=== PATIENT | male | born 1965 | race Caucasian/White ===

== ENCOUNTER 2024-10-03 14:29 | Outpatient (AMB) | payer BC, SELFPAY ==
--- NOTE | 2024-10-03 14:34 | A.OFFVIS_ITS ---
Vital Signs 10/03/24 14:49 Height 5 ft 9 in Weight 175 lb BMI 25.8 BP 136/98 H Blood Pressure Location Lt brachial Position Sitting Respiration 16 Pulse 68 Pulse Source Pulse Oximeter Pulse Oximetry (%) 97 Oxygen Delivery Method Room Air Intake Visit Reasons: Cervical pain Intake Note: Patient comes in for initial visit was referred by [facility] primary care. Reports pain 5-6. Allergies No Known Allergies Allergy (Verified 10/03/24 14:36) HPI Comments Details: Insert is very pleasant 58 years old gentleman who presents in my office with complains on pain in the right side of his neck radiating into the right shoulder without further radiation down the arm. He reports that his pain started in October of 2023. He does not recall any inciting events. He reports that flexing head forward hurts more than flexing had backwards. 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 He reports that he can not sleep normally because of his pain. He can do activities of daily living. Can take care of himself. He can function normally. He reports that movements aggravate his pain. Heat application make his pain better. His pain is most severe in the morning and less severe during daytime. In terms of tissue damage he repo rts his pain is jumping, flushing, shooting, stabbing, lancinating, tingling, stinging, dull, hurting, aching, heavy sensation. He had MRI of the cervical spine results of which dictated as below. Went for 6 sessions of physical therapy and home exercise program and did not receive any pain improvement. He went for chiropractic manipulation and went for 2 alignment which was not successful. He tried home traction unit and obtain very small relief. He reports that his primary care physician performed a shoulder injection for him however this was not image guided injection. He did not receive any improvement from that injection. He takes ibuprofen 800 mg once a day and this helps his pain. His past medical history is negative. Past surgical history is secondary to left rotator cuff repair in 2018. He smokes cigarettes social drinks alcohol drinks caffeinated beverages and denies recreational drugs. [facility] Medical History (Updated 10/03/24 @ 15:26 by Marino Brunner MD) Complete tear of right rotator cuff Mixed hyperlipidemia HTN (hypertension) Surgical History (Updated 10/03/24 @ 14:46 by Lynn Villagran) H/O shoulder surgery (12/2016) Family History (Updated 10/03/24 @ 14:47 by Lynn Villagran) Paternal Grandfather Dementia Social History (Updated 10/03/24 @ 14:47 by Lynn Villagran) Comment: occasional beers Patient Tobacco Use Status: Never used Tobacco Review of Systems Const All systems reviewed & are unremarkable except as noted in HPI and below ENT Reports Normal hearing present Neuro Reports Normal hearing present, Denies Abnormal speech present, Denies confusion and Denies Sensory deficit (Neuro) Psych Denies confusion Physical Exam Vital Signs: Last Vital Signs Pulse 68 10/03/24 14:49 Resp 16 10/03/24 14:49 BP 136/98 H 10/03/24 14:49 Pulse Ox 97 10/03/24 14:49 Oxygen Delivery Method Room Air 10/03/24 14:49 BMI result Body Mass Index 25.8 Const General: no acute distress; No confusion Orientation/consciousness: patient oriented x3 and No confusion Eyes General: appearance normal, both eyes and all related structures Pupils: Equal, round and reactive pupils present EOM: EOMs intact bilaterally Neck Other: No tenderness on palpation on paraspinal spinal region of the cervical spine. No tenderness on palpation on posterior shoulder muscles. Flexing forward aggravates his pain. Axial extension and axial compression of the head do not change the level of the pain. Lhermitte sign is negative. Valsalva maneuver is negative. Spurling test is negative. Chest Chest palpation & inspection: normal inspection of the chest Resp Effort & Inspection: normal respiratory effort, able to speak in complete sentences, normal respiratory pattern, no audible wheezes and no cough Cardio Jugular venous distension: no JVD GI Inspection: Yes normal to inspection Neuro General: patient oriented x3, gait normal and No confusion Cranial nerves: Yes CN's II-XII intact bilaterally, Yes Equal, round and reactive pupils present, Yes Normal hearing present and Yes Ability to mony aterally elevate shoulders present Speech: No Abnormal speech present Gait exam (Neuro): Normal gait present Motor exam (neuro): 5/5 motor strength present throughout Sensory Exam: No Sensory deficit (Neuro) Extrem General: No pedal edema Psych Speech and movement: Normal speech and movement present Affect: normal affect Attitude: cooperative Thought process: Normal thought process present Thought content: Normal thought content present Insight: Good insight present (Psych) Judgement: Good judgement present (Psych) Results Reviewed Results Reviewed: MRI lumbar spine without contrast. 05/20/2024. Findings: Alignment and vertebra: Mildly exaggerated cervical lordosis. Minimal anterolisthesis of C3 on C4 and C4 on C5. Chronic mild anterior wedge deformity of C7 vertebral body. Chronic anterior wedge deformity of partially included T4 vertebral body Marrow: No bone marrow edema. Discs: Desiccation changes in all included discs, without significant loss of height. Spinal cord no evidence of spinal cord compression. No signal abnormality. Soft tissue: Prevertebral and posterior paraspinal soft tissues are unremarkable. Other findings no concerning incidental findings. C2-C3: No spinal canal or neural foraminal stenosis. C3-C4: Small posterior disc osteophyte complex and right-sided facet arthropathy contributes to mild right neural foraminal stenosis. No spinal canal or neural foraminal stenosis on the left. C4-C5: Prominent right facet arthropathy. No spinal canal or neural foraminal stenosis. C5-C6: Combination of posterior disc osteophytes complex and facet arthropathy contributes to mild bilateral neural foraminal stenosis. No spinal canal stenosis. C6-C7 minimal posterior disc osteophyte complex no spinal canal or neural foraminal stenosis. C7-T1 no spinal canal or neural foraminal stenosis. Assessment & Plan Assessment & Plan (1) Spondylosis of cervical region without myelopathy or radiculopathy: Code(s): M47.812 - Spondylosis without myelopathy or radiculopathy, cervical region Category: Medical (2) Chronic pain syndrome: Code(s): G89.4 - Chronic pain syndrome Category: Medical (3) Myofascial pain syndrome: Code(s): M79.18 - Myalgia, other site Category: Medical Plan On the physical examination there is very little to consider spondylosis of the lumbar spine as a major diagnosis. However MRI is very prominent on spondylosis of the cervical spine. I offered this patient diagnostic medial branch block C3-C4 C5-C6 unilateral right to confirm or reject the hypothesis that the pain of this patient is related to the spondylosis. I will invite him for the proced ure without sedation. Possibility exists that this is myofascial pain syndrome it requires physical therapy continuation. I offered patient to go for iontophoresis with magnesium sulfate however patient refused citing financial difficulties. Trigger point injections possibly could be performed to help the patient pain however the steroid injections done by primary care doctor did not affect his pain at all. Patient Instructions: I here by testify that I spent 45 minutes in conversation with this patient as well as evaluating his prior records and diagnostic studies as well as planning his care organizing this note. Coding Level of Care Code New Pt Level 4 (51567) Diagnoses Spondylosis of cervical region without myelopathy or radiculopathy M47.812 Chronic pain syndrome G89.4 Myofascial pain syndrome M79.18
[2024-10-03 14:49] VITALS: BP 136/98; PULSE 68; RESP 16; O2SAT 97; BMI 25.8
== END 2024-10-03 15:14 | disposition home or self-care (01) ==
PROVIDERS: PCP Physician Assistant Medical; Visit Provider Anesthesiology
DX: M47.812 Spondylosis without myelopathy or radiculopathy, cervical region (principal); G89.4 Chronic pain syndrome; M79.18 Myalgia, other site
CPT/HCPCS: 99204